=== PATIENT | female | born 1975 | race Caucasian/White ===

== ENCOUNTER 2022-07-08 11:11 | Emergency (ER) | payer MEDICAID ==
[~2022-07-08] VITALS: Ht 162.6 cm; Wt 61.0 kg
[2022-07-08 11:15] VITALS: BP 142/88
[2022-07-08] MEDS ORDERED: SODIUM CHLORIDE 0.9% 1,000 ML IV ONE (12:00)
[2022-07-08 12:23] LABS: BASOPHILS % 0.7 % (0.0-2.0); HEMATOCRIT. 45.2 % (36.0-48.0); HEMOGLOBIN. 15.3 g/dL (12.0-16.0); MEAN CORPUSCULAR HEMOGLOBIN 29.4 pg (28.0-32.0); MEAN CORPUSCULAR VOLUME 86.8 fL (81.0-99.0); MEAN PLATELET VOLUME 6.6 fl (7.4-10.4); MONOCYTES % 7.7 % (2.0-8.0); NEUTROPHILS % 68.6 % (40.0-76.0); PLATELET 310 x1000/uL (130-400); RED BLOOD CELL COUNT 5.21 mill/uL (4.2-5.4); RED CELL DISTRIBUTION WIDTH 15.8 % (11.6-14.6)
[2022-07-08 12:34] LABS: CHLORIDE 108 mEq/L (98-107)
[2022-07-08 13:05] LABS: HCG SCREEN NEGATIVE
[2022-07-08 14:36] LABS: CLARITY URINE CLOUDY (CLEAR); COLOR URINE YELLOW (YELLOW); KETONES URINE TRACE (NEGATIVE); LEUKOCYTE ESTERASE URINE 2+ (NEGATIVE); NITRITE URINE NEGATIVE (NEGATIVE); OCCULT BLOOD URINE NEGATIVE (NEGATIVE); PROTEIN URINE NEGATIVE (NEGATIVE); SPECIFIC GRAVITY URINE 1.017 (1.005-1.030)
[2022-07-08] MEDS ORDERED: METR-167 PO (15:49)
[2022-07-08] MEDS ORDERED: DOXYCYCLINE HYCLATE 100MG CAPSULE PO ONE (18:00)
[2022-07-08] MEDS ORDERED: CEFTRIAXONE SODIUM 500 MG/VIAL IM ONE (18:00)
[2022-07-08] MEDS ORDERED: DOXY100T2 MT ×2 (18:39)
== END 2022-07-08 19:08 | disposition home or self-care (01) ==
LOC: ER 11:11
DX: R10.2 Pelvic and perineal pain (principal); N39.0 Urinary tract infection, site not specified; A59.9 Trichomoniasis, unspecified; E11.9 Type 2 diabetes mellitus without complications; Z98.84 Bariatric surgery status; Z90.49 Acquired absence of other specified parts of digestive tract
CPT/HCPCS: 36415; 74176; 80053; 81003; 83690; 84703; 85025; 93005; 96372; 99285; J0696; J7030

== ENCOUNTER 2022-07-26 18:16 | Emergency (ER) | payer MEDICAID ==
[~2022-07-26] VITALS: Ht 167.6 cm; Wt 54.0 kg
[2022-07-26] MEDS ORDERED: LORAZEPAM 2MG/ML CPJ IM ONE (18:30)
[2022-07-26] MEDS ORDERED: LORAZEPAM 2MG/ML CPJ IM NR (18:30)
[2022-07-26] MEDS ORDERED: SODIUM CHLORIDE 0.9% 1,000 ML IV NR (18:33)
[2022-07-26 18:59] VITALS: BP 131/87
[2022-07-26 19:50] LABS: BASOPHILS % 0.4 % (0.0-2.0); HEMATOCRIT. 39.2 % (36.0-48.0); HEMOGLOBIN. 13.5 g/dL (12.0-16.0); LYMPHOCYTES % 9.4 % (20.0-50.0); MEAN CORPUSCULAR HEMOGLOBIN 29.6 pg (28.0-32.0); MEAN CORPUSCULAR VOLUME 85.8 fL (81.0-99.0); MEAN PLATELET VOLUME 6.8 fl (7.4-10.4); MONOCYTES % 7.7 % (2.0-8.0); NEUTROPHILS % 82.5 % (40.0-76.0); PLATELET 277 x1000/uL (130-400); RED BLOOD CELL COUNT 4.57 mill/uL (4.2-5.4); RED CELL DISTRIBUTION WIDTH 14.4 % (11.6-14.6)
[2022-07-26 20:08] LABS: CHLORIDE 102 mEq/L (98-107)
[2022-07-26 20:12] LABS: HCG SCREEN NEGATIVE
[2022-07-26 20:15] LABS: ETHANOL BLOOD < 10 mg/dL
== END 2022-07-27 05:22 | disposition home or self-care (01) ==
LOC: ER 18:16
DX: F15.10 Other stimulant abuse, uncomplicated (principal); F22 Delusional disorders; F41.0 Panic disorder [episodic paroxysmal anxiety]; E11.9 Type 2 diabetes mellitus without complications; F17.210 Nicotine dependence, cigarettes, uncomplicated; F14.10 Cocaine abuse, uncomplicated; F12.10 Cannabis abuse, uncomplicated
CPT/HCPCS: 36415; 80053; 80307; 80320; 80329; 83690; 84703; 85025; 96372; 99283; J2060; Z7610; G0480

== ENCOUNTER 2022-08-30 23:32 | Emergency (ER) | payer MEDICAID ==
[~2022-08-30] VITALS: Ht 167.6 cm; Wt 59.0 kg
[2022-08-31 00:02] VITALS: BP 161/83
[2022-08-31 00:10] LABS: BASOPHILS % 0.7 % (0.0-2.0); EOSINOPHILS % 1.1 % (0.0-5.0); HEMATOCRIT. 39.6 % (36.0-48.0); HEMOGLOBIN. 13.3 g/dL (12.0-16.0); LYMPHOCYTES % 13.9 % (20.0-50.0); MEAN CORPUSCULAR HEMOGLOBIN 28.4 pg (28.0-32.0); MEAN CORPUSCULAR VOLUME 84.6 fL (81.0-99.0); MEAN PLATELET VOLUME 6.4 fl (7.4-10.4); MONOCYTES % 3.6 % (2.0-8.0); NEUTROPHILS % 80.7 % (40.0-76.0); PLATELET 413 x1000/uL (130-400); RED BLOOD CELL COUNT 4.68 mill/uL (4.2-5.4)
[2022-08-31 00:20] LABS: CHLORIDE 104 mEq/L (98-107)
[2022-08-31 02:41] LABS: CLARITY URINE CLEAR (CLEAR); COLOR URINE DARK YELLOW (YELLOW); KETONES URINE NEGATIVE (NEGATIVE); LEUKOCYTE ESTERASE URINE NEGATIVE (NEGATIVE); NITRITE URINE NEGATIVE (NEGATIVE); OCCULT BLOOD URINE NEGATIVE (NEGATIVE); PROTEIN URINE 1+ (NEGATIVE); SPECIFIC GRAVITY URINE 1.027 (1.005-1.030)
== END 2022-08-31 04:00 | disposition home or self-care (01) ==
LOC: ER 23:59
DX: R10.30 Lower abdominal pain, unspecified (principal); R11.2 Nausea with vomiting, unspecified; E11.9 Type 2 diabetes mellitus without complications; I10 Essential (primary) hypertension; F20.9 Schizophrenia, unspecified; F14.10 Cocaine abuse, uncomplicated; F12.10 Cannabis abuse, uncomplicated; F15.10 Other stimulant abuse, uncomplicated
CPT/HCPCS: 36415; 74021; 80053; 81003; 85025; 99284

== ENCOUNTER 2022-10-18 12:29 | Emergency (ER) | payer MEDICAID ==
[~2022-10-18] VITALS: Ht 167.6 cm; Wt 67.0 kg
[2022-10-18 12:47] VITALS: BP 137/104
== END 2022-10-18 12:57 | disposition left against medical advice (07) ==
LOC: ER 12:31
DX: S61.011A Laceration without foreign body of right thumb without damage to nail, initial encounter (principal); W26.8XXA Contact with other sharp object(s), not elsewhere classified, initial encounter; Y93.89 Activity, other specified; Y92.89 Other specified places as the place of occurrence of the external cause; Y99.8 Other external cause status
CPT/HCPCS: 99281